=== PATIENT | male | born 1960 | race Asian ===

== ENCOUNTER 2018-06-25 22:36 | Emergency (ER) | payer BC ==
--- NOTE | 2018-06-25 22:47 | PDOC ---
Attending Attestation - HPI HPI: 06/25/18 23:08 The patient is a 58 year old male, with a significant past medical history of HTN, HLD, CAD (on Plavix and Aspirin s/p stenting x7), who presents to the emergency department with, RLE bleeding. Patient notes he believed his varicose vein turned into a blackhead and he flicked it subsequently initiating the vein to bleed through 3 sheets. He denies any recent fevers, chills, headache or dizziness. He denies any recent nausea, vomit, diarrhea or constipation. He denies any recent chest pain or shortness of breath. He denies any recent dysuria, frequency, urgency or hematuria. Allergies: NKDA - Physicial Exam PE: 06/25/18 23:22 GENERAL: The patient is in no acute distress. HEAD: Normal with no signs of trauma. LUNGS: Breath sounds equal, clear to auscultation bilaterally. No wheezes, and no crackles. HEART:Regular rate and rhythm, normal S1 and S2 without murmur, rub or gallop. ABDOMEN: Soft, nontender, normoactive bowel sounds. No guarding, no rebound. No masses palpable. +EXTREMITIES: RLE: Evidence of varicosity and minimal bleeding to the medial calf. DP and PT pulses 2+ and intact. NEUROLOGICAL: Cranial nerves II through XII grossly intact. Normal speech. No focal neurological deficits. MUSCULOSKELETAL: Back non-tender to palpation, no CVA tenderness <Jose Camacho - Last Filed: 06/25/18 23:22> - Resident Resident Name: Dalila Frederick - ED Attending Attestation I have performed the following: I have examined & evaluated the patient, The case was reviewed & discussed with the resident, I agree w/resident's findings & plan, Exceptions are as noted - Medical Decision Making Pt seen immediately Surgicel applied to skin opening Pressure dressing applied Bleeding controlled 06/25/18 23:26 Laboratory Tests 02/04/15 06/25/18 06/25/18 22:55 20:59 20:59 WBC 11.3 H 9.1 Hgb 15.4 D 15.9 Hct 47.1 D 45.0 Plt Count 205 D 168 INR 1.12 H Will re assess <Ny Camejo - Last Filed: 06/25/18 23:26> Attestations - Attestations 06/25/18 23:08 Documentation prepared by Jose Camacho, acting as medical art therapist for Ny Camejo MD. <Jose Camacho - Last Filed: 06/25/18 23:22>
[2018-06-25 22:48] VITALS: BMI 27.3
--- NOTE | 2018-06-25 23:08 | PDOC ---
History of Present Illness - General Chief Complaint: Pain, Acute Stated Complaint: RIGHT LEG PAIN Time Seen by Provider: 06/25/18 22:46 - History of Present Illness Initial Comments: Walter Martinez is a 58yo man with a PMH of CAD s/p HI s/p 8x stents, HTN, HLD who presents with acute onset of bleeding from his RLE. He thinks that he " broke a vein" in his leg. He reports that there was a visible bulge on his medial right owen, present for many years. He has never had any problems with the spot, but it looked dark a day or two ago. He thought it might be a pimple, so he "flicked it" yesterday. He states that part of the dark area came off. Tonight, he was drying off after a shower. When he dried his leg and removed the towel, he noted copious bleeding from the same area on his leg. Mr Martinez reports that he needed 3 towels at home to control continued bleeding. A lida wrap was placed by EMS prior to transport to the hospital. Other than the episode today, Mr Martinez states that he has been feeling great. He denies any recent symptoms, and he has been compliant with all his medications including aspirin and plavix. Past History - Past Medical History Allergies/Adverse Reactions: Allergies Allergy/AdvReac Type Severity Reaction Status Date / Time No Known Allergies Allergy Verified 06/25/18 22:48 Home Medications: Ambulatory Orders Alprazolam [Xanax] 1 mg PO DAILY 12/29/12 Aspirin [ASA -] 81 mg PO DAILY 12/29/12 Clopidogrel Bisulfate [Plavix -] 75 mg PO DAILY 12/29/12 Metoprolol Succinate [Toprol XL -] 25 mg PO DAILY 12/29/12 Rosuvastatin [Crestor -] 40 mg PO HS 12/29/12 Oxycodone HCl/Acetaminophen [Percocet 10-325 mg Tablet -] 1 tab PO Q6H PRN 02/05 Cardiac Disorders: Yes - Surgical History Cardiac Surgery: Yes (STENTS) - Suicide/Smoking/Psychosocial Hx Smoking Status: Yes Smoking History: Never smoked Have you smoked in the past 12 months: No Number of Cigarettes Smoked Daily: 3 Information on smoking cessation initiated: No 'Breaking Loose' booklet given: 12/29/12 Hx Alcohol Use: No Drug/Substance Use Hx: No Review of Systems - Review of Systems Comments:: General: No fevers, no chills, no weight or appetite change, no malaise HEENT: No changes in vision, no changes in hearing, no congestion, no sore throat CV: No chest pain, no palpitations, no LE edema Pulm: No SOB, no cough, no wheezing GI: No nausea or vomiting, no change in bowel habits, no melena : No frequency, no urgency, no dysuria Musc: No back pain, no joint swelling, no recent injury Skin: No rash, no lesions, no erythema Endo: No excessive thirst, no heat/cold intolerance Heme: No unusual bruising or bleeding, no swollen glands Neuro: No syncope, no numbness/tingling, no focal weakness Vasc: No claudication. See HPI. Psych: No recent change in mood, no SI or HI *Physical Exam - Vital Signs Last Vital Signs Temp Pulse Resp BP Pulse Ox 98.8 F 88 19 128/90 98 06/25/18 22:36 06/25/18 22:36 06/25/18 22:36 06/25/18 22:36 06/25/18 22:36 - Physical Exam Comments: General: Comfortable, no acute distress HEENT: PERRL, EOMI, MMM, voice normal, normal neck ROM, no LAD Cards: RRR Pulm: Comfortable on room air Ext: RLE with active bleeding from medial owen. Dark red, non-pulsatile. Dried blood on b/l feet. b/l feet WWP, palpable pulses. No LE edema. Visible veins on the surface of both legs, diffuse spider veins. Neuro: A&Ox3, CN grossly intact, normal speech, motor/sensory grossly intact and symmetric Psych: Mood appropriate to situation Moderate Sedation - Procedure Monitoring Vital Signs: Procedure Monitoring Vital Signs Temperature 98.8 F 06/25/18 22:36 Pulse Rate 88 06/25/18 22:36 Respiratory Rate 19 06/25/18 22:36 Blood Pressure 128/90 06/25/18 22:36 O2 Sat by Pulse Oximetry (%) 98 06/25/18 22:36 ED Treatment Course - LABORATORY CBC & Chemistry Diagram: 06/25/18 20:59 06/25/18 20:59 Medical Decision Making - Medical Decision Making 06/25/18 23:07 Walter Martinez is a 58yo man with a PMH of CAD s/p HI s/p 8x stents, HTN, HLD who presents with acute onset of bleeding from his RLE. The bleeding appears to be venous and is consistent with the pt's description of a ruptured varicose vein. - Active bleeding noted when dressing removed - Surgicel placed on site of bleeding, wrapped with a pressure dressing - Given report of multiple bath towels being used at home to control bleeding with unknown blood loss, will check CBC. Coags sent to r/o clotting abnormalities. 06/25/18 23:34 - Hgb 15. Likely lower once fluid is repleted, but very unlikely that he sustained significant blood loss. No concerning coag abnormalities. Chemistry pending. - RAMONA replaced due to onset of duskiness in R foot. Color returned to normal after loosening, normal cap refill. - No strike-through noted on dressing. Will check for active bleeding in 10-15 minutes prior to discharge. 06/26/18 00:12 - Remainder of labs WNL - Re-examined the wound. Still no return of bleeding. Discussed home care with Mr Martinez and his at length. Both understand and agree with the plan to discharge home. Discussed with Dr Camejo. Dalila Frederick PGY1 *DC/Admit/Observation/Transfer Diagnosis at time of Disposition: Bleeding from varicose veins of right lower extremity - Discharge Dispostion Disposition: HOME Condition at time of disposition: Fair Decision to Admit order: No - Referrals Referrals: Osmel Thompson MD [Staff Physician] - - Patient Instructions Additional Instructions: Discharge Instructions: - You were seen in the emergency department for bleeding from your right leg. A pressure dressing was placed, and the bleeding stopped - You had blood tests to check your blood levels and coagulation (how thin your blood is), and the results were all normal - Leave the pressure dressing in place for at least 24 hours. After that you may carefully remove the dressing. If there is gauze stuck to the wound, do not pull it off. You may use a scissors to cut away any loose gauze, but leave the stuck area in place. Pulling or tugging at the gauze could open up the healing wound. - Keep your right leg dry for at least 24 hours. After that, it is OK to shower and allow water to run over the wound. Do not scrub it, and make sure you gently pat it dry until the wound is completely healed. - Do not apply any lotions, ointments, or medications to the wound. After the first 24hrs, it is OK to leave the would open to air without any bandage, though you may wish to keep it covered for protection if you are doing any physical activity. - If you have any similar bleeding episodes at home, hold firm pressure in place for AT LEAST 15 MINUTES. Do not remove pressure to check for bleeding. - You have been referred to a vascular surgeon, Dr Thompson, for evaluation of varicose veins. - Seek immediate medical care if you have any continued - Post Discharge Activity
[2018-06-25 23:12] LABS: BASO % 1.2 % (0-2.0); EOS % 2.6 % (0-4.5); HEMOGLOBIN 15.9 GM/dL (11.7-16.9); LYMPH % 17.9 % (8-40); MCH 32.9 pg (25.7-33.7); MCHC 35.4 g/dl (32.0-35.9); MEAN PLT VOLUME 8.2 fl (7.5-11.1); MONO % 6.8 % (3.8-10.2); NEUT % 71.5 % (42.8-82.8); PLATELET COUNT 168 K/MM3 (134-434); RBC 4.84 M/mm3 (4.00-5.60); WHITE BLOOD COUNT 9.1 K/mm3 (4.0-10.0)
[2018-06-25 23:23] LABS: INR 1.12 (0.83-1.09); PROTHROMBIN TIME (PATIENT) 13.2 SEC (9.7-13.0)
[2018-06-25 23:26] LABS: ACTIVATED PTT 30.8 SECONDS (25.2-36.5)
[2018-06-25 23:51] LABS: ALK PHOS 28 U/L (45-117); ANION GAP 5 MMOL/L (8-16); BILIRUBIN,TOTAL 1.3 mg/dL (0.2-1); BLOOD UREA NITROGEN 14 mg/dL (7-18); CALCIUM 8.8 mg/dL (8.5-10.1); CHLORIDE 104 mmol/L (98-107); CO2 28 mmol/L (21-32); CREATININE 1.1 mg/dL (0.55-1.3); GLUCOSE,RANDOM 121 mg/dL (74-106); POTASSIUM 3.8 mmol/L (3.5-5.1); SGOT/AST 17 U/L (15-37); SGPT/ALT 25 U/L (13-61); SODIUM 138 mmol/L (136-145); TOT PROT 7.2 g/dl (6.4-8.2)
[2018-06-26 01:29] VITALS: BP 133/71; PULSE 81; TEMP 97.9
== END 2018-06-26 01:29 | disposition home or self-care (01) ==
LOC: JER 22:36
DX: I83.891 Varicose veins of right lower extremity with other complications (principal); I25.10 Atherosclerotic heart disease of native coronary artery without angina pectoris; I10 Essential (primary) hypertension; Z95.5 Presence of coronary angioplasty implant and graft; I25.2 Old myocardial infarction; E78.5 Hyperlipidemia, unspecified; Z79.01 Long term (current) use of anticoagulants; Z79.82 Long term (current) use of aspirin
CPT/HCPCS: 36415; 80053; 85025; 85610; 85730; 99282-25